=== PATIENT | female | born 1930 | race Caucasian/White ===

== ENCOUNTER 2016-12-24 15:26 | Inpatient (IN) | payer MEDICARE, OTHER ==
--- NOTE | ~2016-12-24 | HP ---
History And Physical [place] [id number] [facility] [place]. [address] NAME: BETTINA GUADARRAMA : 32 STATUS : ADM Giovana PAT#: [id number] AGE: 86 ADM/REG DATE : 12/24/16 MR#: [id number] REPORT SERV DATE: 12/24/16 DICTATED BY: MULUGETA GARCIA DATE: 12/24/16 REPORT STATUS : Draft TRANSCRIBED BY: MODL DATE: 12/24/16 DATE OF ADMISSION: 12/24/2016 CHIEF COMPLAINT: Fall at home and weakness. HISTORY OF PRESENT ILLNESS: This is an 86-year-old female with a history of recent nephrotic syndrome and kidney biopsy, followed by Dr. Cruz, her telemedicine physician; essential hypertension; COPD; chronic kidney disease stage 3; and benign positional vertigo, who was brought to the emergency room via EMS with the above-mentioned complaint. History is obtained from the patient, her daughter who is at bedside, and reviewing data available on the [facility] system. According to the patient's daughter and the patient, she had been in the usual state of health, maybe a little more weaker these days. Today, she was in the bathroom, sat down on the commode, but was unable to get up. She usually gets up with the help of a vanity, but today, she was helpless. She called family, and her daughters were able to help her out. They helped her to a chair in the living room, but before she could reach the chair, she just went down slowly with them holding her. She did not fall or hit her head against anything nor did she have any loss of consciousness, but says her legs just gave way. EMS was summoned, and patient was brought here. She was recently admitted here at [facility], from 11/07/2016 to 11/10/2016, where she had nephrotic syndrome and had a kidney biopsy as well. In the emergency room, initial workup revealed leukocytosis with a urinary tract infection, and Hospitalist Service is asked to admit her for further evaluation and treatment. At the time of my evaluation, she denied any chest pain, palpitations, or orthopnea. She had no cough, hemoptysis, night sweats, or weight loss. She did have a low fall to the floor, but without any loss of consciousness. No history of fevers, chills, nausea, vomiting, or diarrhea. She did have dysuria and increased frequency. No history of hematemesis, hematochezia, or hematuria. No other history of recent travel or exposures other than those mentioned above. PAST MEDICAL HISTORY: Significant for history of COPD, essential hypertension, chronic kidney disease stage 3 with a baseline of 1.4 to 1.6, history of nephrotic syndrome recently, benign positional vertigo, restless legs syndrome, and hyperlipidemia. SOCIAL HISTORY: She has never smoked, does not drink, or use recreational drugs. FAMILY HISTORY: Noncontributory. MEDICATIONS: Her medications at home were reviewed by me in the chart today and reordered by me. REVIEW OF SYSTEMS: As in history of present illness. All other systems were reviewed in detail and are quite History And Physical [address] [address] NAME: BETTINA GUADARRAMA : 32 STATUS : ADM Giovana PAT#: [id number] AGE: 86 ADM/REG DATE : 12/24/16 MR#: [id number] REPORT SERV DATE: 12/24/16 DICTATED BY: MULUGETA GARCIA DATE: 12/24/16 REPORT STATUS : Draft TRANSCRIBED BY: NAVI DATE: 12/24/16 unremarkable. PHYSICAL EXAMINATION: GENERAL: This is a pleasant 86-year-old, not in any acute distress. HEENT: Her head is atraumatic, normocephalic. She is alert, awake, oriented to time, place, and person. Her pupils are equal, reacting to light and accommodating. External ocular muscles are intact. Membranes are moist and pink. Sclerae are nonicteric. NECK: Supple with no jugular venous distention, lymphadenopathy, or thyromegaly. LUNGS: Clear to auscultation with no wheezes, rubs, or crackles. HEART: Heart sounds were regular with no murmurs, rubs, or gallops. ABDOMEN: Soft, nontender. Bowel sounds are present. EXTREMITIES: Showed bilateral pitting lower extremity edema. Otherwise, without any cyanosis, or clubbing. NEUROLOGIC: Grossly intact with no focal sensory or motor deficits. Higher functions appeared intact. Gait was not examined at this time. VITAL SIGNS: Her vital signs today showed a temperature of 97.8, pulse 65, respirations 24 a minute, blood pressure was 135/43. Oxygen saturations were 99%, breathing 2 L of oxygen via nasal cannula. LABORATORY DATA: Reviewed on the [facility] system showed sodium of 135, potassium 5.1, chloride 103, and CO2 of 24. BUN was 68 with a creatinine of 1.50. Her glucose was 97 today. Her albumin was 2.1 today. Total bilirubin was 8.4, alkaline phosphatase was 112, ALT 38, and AST was 22. [place] [address], hemoglobin was 13.8, hematocrit 41.4, and platelet count was 277,000. Urinalysis showed large leukocyte esterase, greater than 182 wbc's, and occasional bacteria. Films of the chest x-ray was reviewed by me on the PACS today and interpreted by me. Per my interpretation, there is normal bony architecture with no cardiomegaly. There were no lobar consolidations or pleural effusions seen. A 12-lead EKG done in the emergency room was reviewed and interpreted by me. There is normal sinus rhythm with a rate of [address] changes. IMPRESSION: 1. Low fall at home. 2. Generalized weakness. 3. Urinary tract infection. 4. Leukocytosis. 5. Essential hypertension. 6. Chronic obstructive pulmonary disease. 7. Chronic kidney disease stage 3, followed by Dr. Cruz. Baseline creatinine 1.4 to 1.6. 8. History of nephrotic syndrome in 11/2016. 9. Benign positional vertigo. 10.Restless legs syndrome. 11.Hyperlipidemia. PLAN: We will admit Mrs. Guadarrama to the Hospitalist Service with telemetry for a 24-hour observation period. After cultures are obtained, we will start her on empiric IV History And Physical [address] [address] NAME: BETTINA GUADARRAMA : 32 STATUS : ADM Giovana PAT#: [id number] AGE: 86 ADM/REG DATE : 12/24/16 MR#: [id number] REPORT SERV DATE: 12/24/16 DICTATED BY: MULUGETA GARCIA DATE: 12/24/16 REPORT STATUS : Draft TRANSCRIBED BY: MODL DATE: 12/24/16 antibiotics, follow Gram stain cultures, and proceed accordingly. I have started her on Rocephin that she got in the ER already, but given her recent hospitalization, we may have to broaden coverage for nosocomial infection. We will wait for gram stain results. We will start her cautiously on IV fluids. She may need albumin replacement as well. We will follow chemistry, electrolytes, and proceed accordingly. We will also let Dr. Cruz know as well. Meanwhile, we will start her on bronchodilator treatments, continue her supplemental oxygen therapy. We will also place her on unfractionated heparin for DVT prophylaxis while here. We will continue the rest of her home medications and treatments. I have discussed the above plans with the patient and the daughter, who is at bedside. Questions were answered and they are agreeable to the above recommendations. Hospitalist Service will be following her during her stay here. /NAVI Mulugeta Garcia M.D. / [id number] CC: Mindy Ross M.D.
--- NOTE | ~2016-12-24 | DS ---
Discharge Summary [facility] [address] [place]. [address] NAME: BETTINA GUADARRAMA : 32 STATUS : DIS IN PAT#: [id number] AGE: 86 ADM/REG DATE : 12/25/16 MR#: [id number] REPORT SERV DATE: 12/30/16 DICTATED BY: TAMIR COX II DATE: 12/29/16 REPORT STATUS : Draft TRANSCRIBED BY: MODL DATE: 12/29/16 ADMISSION DATE: 12/25/2016 DISCHARGE DATE: 12/29/2016 DISCHARGE DIAGNOSES: 1. Pseudomonas urinary tract infection. 2. 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 3. Acute kidney injury on chronic kidney disease stage 3. 4. Leukocytosis. 5. Hypertension. 6. Morbid obesity with generalized debility. 7. History of recurrent falls. 8. Restless legs syndrome. 9. Chronic obstructive pulmonary disease. BRIEF HISTORY OF PRESENT ILLNESS: The patient is an 86-year-old female with the above history who presented to [facility] due to progressive weakness and falls. She was found to have UTI and subsequently admitted. For detailed history and physical examination, please see Dr. Anderson's note from 12/22/2016. HOSPITAL COURSE: On admission, her urinalysis showed greater than 182 white cells and large leukocyte esterase. She was initially started on Rocephin. However, white count continued to trend up from 15 to 18 and she was switched over to Zosyn. Urine culture subsequently came back with Pseudomonas resistant to fluoroquinolones. She subsequently received 4 days of IV Zosyn and repeat urinalysis is now completely normal with less than 1 white blood cell. No evidence of infection. Her white blood cell count has come down to around 11. Otherwise, one of her main sources of morbidity is her chronic lymphedema. She had previously been on Lasix. So this was stopped by her corporate services manager as apparently appeared to be dehydrating her. Her chronic edema is likely related to her chronic hypoalbuminemia and hypoproteinemia. Her total protein is 5.2, albumin 2.1. BNP was only marginally elevated at 108. She did seem like she could tolerate some diuresis. So she was given torsemide with minimal effect prior to administration of albumin. After several doses of albumin, her edema significantly improved and her kidney function has actually improved down to 1.35. It was 1.8 when she was discharged in November and 1.5 on admission. We will continue her dose of torsemide as needed for edema plus potassium. At this point, she has been approved for SNF placement and for the rehab and currently stable for discharge. DISCHARGE MEDICATIONS: 1. Aspirin 81 mg p.o. daily. 2. Fenofibrate 160 mg p.o. daily. 3. Mevacor 40 mg p.o. at bedtime. 4. Mag oxide 400 mg p.o. b.i.d. 5. Toprol 100 mg p.o. daily. 6. Omeprazole 20 mg p.o. daily. 7. Sodium bicarb 1300 mg p.o. b.i.d. 8. Demadex 10 mg p.o. daily p.r.n. edema. Discharge Summary [address] [address] NAME: BETTINA GUADARRAMA : 32 STATUS : DIS IN PAT#: [id number] AGE: 86 ADM/REG DATE : 12/25/16 MR#: [id number] REPORT SERV DATE: 12/30/16 DICTATED BY: TAMIR COX II DATE: 12/29/16 REPORT STATUS : Draft TRANSCRIBED BY: NAVI DATE: 12/29/16 9. Tylenol 650 mg p.o. q.4 hours p.r.n. 10.Neurontin 200 mg p.o. daily. 11.Vitamin D 50,000 units p.o. weekly. 12.KCl 20 mEq p.o. daily p.r.n. torsemide. DISCHARGE INSTRUCTIONS: The patient will be discharged to [facility] for further rehab. OTIS/NAVI Tamir Cox II, MD / [id number] CC: MD En Guerra II, M.D.
[~2016-12-24 15:26] MED LIST: ACET500CAP PO; ASAB PO; ASPERCREME TOP; KDUR20 PO; LOFIBRA160 MG PO; LOTE20 PO; MEVACOR40 MG PO; MIRAPEX250 PO; PRILOSEC40 MG PO; TOPXL100 PO; ULTRAM50 PO
[2016-12-24 17:33] LABS: BASOPHILS 0.1 %; BASOPHILS ABSOLUTE 0.01 10/3/uL (0.0-0.16); EOSINOPHILS 0 %; HEMOGLOBIN 13.8 g/dL (12.0-16.0); IMMATURE GRANULOCYTES 1.2 %; IMMATURE GRANULOCYTES ABSOLUTE 0.19 10/3/uL (0.0-0.11); LYMPHOCYTES 5.4 %; LYMPHOCYTES ABSOLUTE 0.83 10/3/uL (0.67-4.30); MEAN CORPUS HGB CONC 33.3 g/dL (32.0-36.0); MEAN CORPUSCULAR HEMOGLOB 30.9 pg (26.0-34.0); MEAN CORPUSCULAR VOLUME 92.6 fL (80-100); MEAN PLATELET VOLUME 11.2 fL (9.2-13.0); MONOCYTES 5.1 %; MONOCYTES ABSOLUTE 0.78 10/3/uL (0.21-1.20); NEUTROPHILS 88.2 %
[2016-12-24 17:34] LABS: HEMATOCRIT 41.4 % (36.0-48.0); MANUAL DIFF NO %; PLATELET COUNT 277 10/3/uL (150-400); RED CELL COUNT 4.47 10/6/uL (4.0-5.6); WHITE BLOOD CELLS 15.3 10/3/uL (4.5-10.5)
[2016-12-24 17:43] LABS: ASCORBIC ACID (UR NOT ORDER) NEG (NEG); BILIRUBIN, URINE NEGATIVE (NEG); ER URINALYSIS TAT 0 Hrs 10 Mins; KETONE, URINE NEGATIVE (NEG); LEUKOCYTE ESTERASE(NOT OR LARGE (NEG); NITRITE (URINE) NEG (NEG); WBC (NOT ORDERED) (RFLEX) > 182 (0-5)
[2016-12-24 17:49] LABS: A/G RATIO 0.7 (0.7-1.9); ALBUMIN 2.1 G/DL (3.5-5.0); CALCIUM, SERUM 8.7 MG/DL (8.5-10.4); CHLORIDE, SERUM 103 MMOL/L (96-112); CO2 (CARBON DIOXIDE) 24 MMOL/L (24-34); GFR AFRICAN AMERICAN 36 ML/MIN (>=60); GFR NON AFRICAN AMERICAN 31 ML/MIN (>=60); GLOBULIN 3.1 G/DL (2.5-4.1); GLUCOSE, SERUM 97 MG/DL (60-99); SGOT(AST) 22 U/L (5-40); SGPT(ALT) 38 U/L (5-65); SODIUM, SERUM 135 MMOL/L (135-148); TOTAL PROTEIN 5.2 G/DL (6.0-8.5)
[2016-12-24 17:50] LABS: ALKALINE PHOSPHATASE 112 U/L (45-117); BUN (BLOOD UREA NITROGEN) 68 MG/DL (6-23); POTASSIUM, SERUM 5.1 MMOL/L (3.5-5.3); TOTAL BILIRUBIN 0.4 MG/DL (0-1.2)
[2016-12-24] MEDS ORDERED: LOFIB160 PO (19:26)
[2016-12-24] MEDS ORDERED: SODBICAR10 PO (19:28)
[2016-12-24] MEDS ORDERED: P10 PO (19:28)
[2016-12-24] MEDS ORDERED: MEVACOR40 MG PO (19:29)
[2016-12-24] MEDS ORDERED: NEUR100 PO (19:29)
[2016-12-24] MEDS ORDERED: TOPXL100 PO (19:30)
[2016-12-24] MEDS ORDERED: PRILO PO (19:31)
[2016-12-24] MEDS ORDERED: ASAB PO (19:32)
[2016-12-24] MEDS ORDERED: VITD PO (19:32)
[2016-12-24] MEDS ORDERED: MAGOX4 PO (19:32)
[2016-12-25 04:48] LABS: BASOPHILS 0 %; EOSINOPHILS 0.1 %; EOSINOPHILS ABSOLUTE 0.02 10/3/uL (0.0-0.53); HEMATOCRIT 40.3 % (36.0-48.0); HEMOGLOBIN 13.3 g/dL (12.0-16.0); IMMATURE GRANULOCYTES 0.7 %; IMMATURE GRANULOCYTES ABSOLUTE 0.13 10/3/uL (0.0-0.11); LYMPHOCYTES 12.2 %; LYMPHOCYTES ABSOLUTE 2.24 10/3/uL (0.67-4.30); MEAN CORPUSCULAR HEMOGLOB 30.7 pg (26.0-34.0); MEAN CORPUSCULAR VOLUME 93.1 fL (80-100); MEAN PLATELET VOLUME 11.4 fL (9.2-13.0); MONOCYTES 9.6 %; MONOCYTES ABSOLUTE 1.76 10/3/uL (0.21-1.20); NEUTROPHILS 77.4 %; NEUTROPHILS ABSOLUTE 14.19 10/3/uL (2.02-8.40); PLATELET COUNT 264 10/3/uL (150-400); RBC DISTRIBUTION WIDTH 14.8 % (12.0-16.0); RED CELL COUNT 4.33 10/6/uL (4.0-5.6); WHITE BLOOD CELLS 18.3 10/3/uL (4.5-10.5)
[2016-12-25 04:52] LABS: MANUAL DIFF NO %
[2016-12-25 05:03] LABS: CALCIUM, SERUM 8.5 MG/DL (8.5-10.4); CHLORIDE, SERUM 108 MMOL/L (96-112); CO2 (CARBON DIOXIDE) 22 MMOL/L (24-34); CREATININE 1.31 MG/DL (0.55-1.02); GFR AFRICAN AMERICAN 43 ML/MIN (>=60); GFR NON AFRICAN AMERICAN 37 ML/MIN (>=60); GLUCOSE, SERUM 87 MG/DL (60-99); PHOSPHORUS, SERUM 2.8 MG/DL (2.5-4.5); POTASSIUM, SERUM 4.6 MMOL/L (3.5-5.3); SODIUM, SERUM 138 MMOL/L (135-148)
[2016-12-25 05:04] LABS: BUN (BLOOD UREA NITROGEN) 64 MG/DL (6-23)
[2016-12-26 08:42] LABS: BASOPHILS 0.1 %; BASOPHILS ABSOLUTE 0.01 10/3/uL (0.0-0.16); EOSINOPHILS 1.4 %; EOSINOPHILS ABSOLUTE 0.16 10/3/uL (0.0-0.53); HEMATOCRIT 38.5 % (36.0-48.0); HEMOGLOBIN 12.9 g/dL (12.0-16.0); IMMATURE GRANULOCYTES 1.9 %; IMMATURE GRANULOCYTES ABSOLUTE 0.22 10/3/uL (0.0-0.11); LYMPHOCYTES 17.2 %; LYMPHOCYTES ABSOLUTE 1.98 10/3/uL (0.67-4.30); MEAN CORPUS HGB CONC 33.5 g/dL (32.0-36.0); MEAN CORPUSCULAR HEMOGLOB 30.5 pg (26.0-34.0); MEAN PLATELET VOLUME 11.4 fL (9.2-13.0); MONOCYTES 8.5 %; MONOCYTES ABSOLUTE 0.98 10/3/uL (0.21-1.20); NEUTROPHILS 70.9 %; NEUTROPHILS ABSOLUTE 8.18 10/3/uL (2.02-8.40); PLATELET COUNT 233 10/3/uL (150-400); RBC DISTRIBUTION WIDTH 15.3 % (12.0-16.0); RED CELL COUNT 4.23 10/6/uL (4.0-5.6); WHITE BLOOD CELLS 11.5 10/3/uL (4.5-10.5)
[2016-12-26 08:44] LABS: MANUAL DIFF NO %
[2016-12-26 08:55] LABS: BUN (BLOOD UREA NITROGEN) 61 MG/DL (6-23); CALCIUM, SERUM 8.5 MG/DL (8.5-10.4); CHLORIDE, SERUM 102 MMOL/L (96-112); CO2 (CARBON DIOXIDE) 25 MMOL/L (24-34); CREATININE 1.48 MG/DL (0.55-1.02); GFR AFRICAN AMERICAN 37 ML/MIN (>=60); GFR NON AFRICAN AMERICAN 32 ML/MIN (>=60); GLUCOSE, SERUM 75 MG/DL (60-99); POTASSIUM, SERUM 4.3 MMOL/L (3.5-5.3); SODIUM, SERUM 137 MMOL/L (135-148)
[2016-12-27 04:16] LABS: BASOPHILS 0.1 %; BASOPHILS ABSOLUTE 0.01 10/3/uL (0.0-0.16); EOSINOPHILS 0.8 %; HEMATOCRIT 35.1 % (36.0-48.0); HEMOGLOBIN 11.7 g/dL (12.0-16.0); IMMATURE GRANULOCYTES 1.6 %; IMMATURE GRANULOCYTES ABSOLUTE 0.21 10/3/uL (0.0-0.11); LYMPHOCYTES 14.9 %; LYMPHOCYTES ABSOLUTE 1.91 10/3/uL (0.67-4.30); MEAN CORPUS HGB CONC 33.3 g/dL (32.0-36.0); MEAN CORPUSCULAR HEMOGLOB 30.6 pg (26.0-34.0); MEAN CORPUSCULAR VOLUME 91.9 fL (80-100); MEAN PLATELET VOLUME 11.6 fL (9.2-13.0); MONOCYTES 6.8 %; MONOCYTES ABSOLUTE 0.87 10/3/uL (0.21-1.20); NEUTROPHILS 75.8 %; NEUTROPHILS ABSOLUTE 9.73 10/3/uL (2.02-8.40); PLATELET COUNT 215 10/3/uL (150-400); RBC DISTRIBUTION WIDTH 15.1 % (12.0-16.0); RED CELL COUNT 3.82 10/6/uL (4.0-5.6); WHITE BLOOD CELLS 12.8 10/3/uL (4.5-10.5)
[2016-12-27 04:18] LABS: MANUAL DIFF NO %
[2016-12-27 04:29] LABS: CALCIUM, SERUM 8.3 MG/DL (8.5-10.4); CHLORIDE, SERUM 105 MMOL/L (96-112); CO2 (CARBON DIOXIDE) 24 MMOL/L (24-34); CREATININE 1.66 MG/DL (0.55-1.02); GFR AFRICAN AMERICAN 32 ML/MIN (>=60); GFR NON AFRICAN AMERICAN 28 ML/MIN (>=60); POTASSIUM, SERUM 4.3 MMOL/L (3.5-5.3); SODIUM, SERUM 137 MMOL/L (135-148)
[2016-12-27 04:31] LABS: BUN (BLOOD UREA NITROGEN) 57 MG/DL (6-23)
[2016-12-27 04:32] LABS: GLUCOSE, SERUM 115 MG/DL (60-99)
[2016-12-28 04:44] LABS: BASOPHILS 0.1 %; BASOPHILS ABSOLUTE 0.01 10/3/uL (0.0-0.16); EOSINOPHILS 1.6 %; EOSINOPHILS ABSOLUTE 0.18 10/3/uL (0.0-0.53); HEMOGLOBIN 10.1 g/dL (12.0-16.0); IMMATURE GRANULOCYTES 2.2 %; IMMATURE GRANULOCYTES ABSOLUTE 0.25 10/3/uL (0.0-0.11); LYMPHOCYTES 19.8 %; LYMPHOCYTES ABSOLUTE 2.22 10/3/uL (0.67-4.30); MEAN CORPUS HGB CONC 33.9 g/dL (32.0-36.0); MEAN CORPUSCULAR HEMOGLOB 31.1 pg (26.0-34.0); MEAN CORPUSCULAR VOLUME 91.7 fL (80-100); MEAN PLATELET VOLUME 11.2 fL (9.2-13.0); MONOCYTES ABSOLUTE 1.01 10/3/uL (0.21-1.20); NEUTROPHILS 67.3 %; NEUTROPHILS ABSOLUTE 7.52 10/3/uL (2.02-8.40); PLATELET COUNT 181 10/3/uL (150-400); RBC DISTRIBUTION WIDTH 15.2 % (12.0-16.0); RED CELL COUNT 3.25 10/6/uL (4.0-5.6); WHITE BLOOD CELLS 11.2 10/3/uL (4.5-10.5)
[2016-12-28 04:53] LABS: HEMATOCRIT 29.8 % (36.0-48.0); MANUAL DIFF NO %
[2016-12-28 05:02] LABS: CALCIUM, SERUM 8.4 MG/DL (8.5-10.4); CHLORIDE, SERUM 102 MMOL/L (96-112); CO2 (CARBON DIOXIDE) 25 MMOL/L (24-34); CREATININE 1.57 MG/DL (0.55-1.02); GFR AFRICAN AMERICAN 34 ML/MIN (>=60); GFR NON AFRICAN AMERICAN 30 ML/MIN (>=60); POTASSIUM, SERUM 4.1 MMOL/L (3.5-5.3); SODIUM, SERUM 137 MMOL/L (135-148)
[2016-12-28 05:03] LABS: BUN (BLOOD UREA NITROGEN) 53 MG/DL (6-23); GLUCOSE, SERUM 88 MG/DL (60-99)
[2016-12-28 10:30] LABS: ASCORBIC ACID (UR NOT ORDER) NEG (NEG); BILIRUBIN, URINE NEGATIVE (NEG); KETONE, URINE NEGATIVE (NEG); LEUKOCYTE ESTERASE(NOT OR NEG (NEG); WBC (NOT ORDERED) (RFLEX) < 1 (0-5)
[2016-12-29 05:51] LABS: CHLORIDE, SERUM 105 MMOL/L (96-112); CO2 (CARBON DIOXIDE) 25 MMOL/L (24-34); CREATININE 1.35 MG/DL (0.55-1.02); GFR AFRICAN AMERICAN 41 ML/MIN (>=60); GFR NON AFRICAN AMERICAN 36 ML/MIN (>=60); GLUCOSE, SERUM 75 MG/DL (60-99); POTASSIUM, SERUM 3.7 MMOL/L (3.5-5.3); SODIUM, SERUM 141 MMOL/L (135-148)
[2016-12-29 05:52] LABS: BUN (BLOOD UREA NITROGEN) 46 MG/DL (6-23)
== END 2016-12-29 18:37 | DRG 690 ==
LOC: ER 15:26 → 4SO 19:44
PROVIDERS: Internal Medicine; Internal Medicine Pulmonary Disease; Nurse Practitioner
DX: N39.0 Urinary tract infection, site not specified (principal); N17.9 Acute kidney failure, unspecified; J44.9 Chronic obstructive pulmonary disease, unspecified; E66.01 Morbid (severe) obesity due to excess calories; B96.5 Pseudomonas (aeruginosa) (mallei) (pseudomallei) as the cause of diseases classified elsewhere; N18.3 Chronic kidney disease, stage 3 (moderate); R53.1 Weakness; I12.9 Hypertensive chronic kidney disease with stage 1 through stage 4 chronic kidney disease, or unspecified chronic kidney disease; H81.10 Benign paroxysmal vertigo, unspecified ear; G25.81 Restless legs syndrome; Z91.81 History of falling; E78.5 Hyperlipidemia, unspecified; Z68.38 Body mass index [BMI] 38.0-38.9, adult; I89.0 Lymphedema, not elsewhere classified; Z79.82 Long term (current) use of aspirin
CPT/HCPCS: 71010; 80048; 80053; 81001; 83605; 83735; 83880; 84100; 84156; 85025; 87040; 87077; 87086; 87186; 93005; 94640; 97110-GP; 97116-GP; 97162-GP; 99285; A9270-GY; G8978-CK-GP; G8979-CK-GP; J1940; J2543; P9047